=== PATIENT | male | born 1985 | race Caucasian/White ===

== ENCOUNTER 2019-03-19 16:49 | Observation (INO) | payer OTHER ==
[~2019-03-19] VITALS: Ht 177.8 cm; Wt 126.0 kg
[2019-03-19 17:46] LABS: BASO # 0.1 (0.0-0.2); BASO % 0.9 % (0.0-2.0); EOS # 0.1 (0.0-0.7); EOS % 0.9 % (0-4.0); GRAN # 5.5 (1.4-6.5); GRAN % 61.1 % (42.2-75.2); HEMATOCRIT 49.9 % (42.0-52.0); HEMOGLOBIN 17.1 g/dl (13.5-18.0); LYMPH # 2.8 (1.2-3.4); LYMPH % 31.1 % (20.0-51.0); MEAN CELL VOLUME 88 fl (80.0-100.0); MEAN CORPUSCULAR HEMOGLOBIN 30 pg (27.0-31.0); MEAN CORPUSCULAR HGB CONC 34 g/dl (33.0-37.0); MEAN PLATELET VOLUME 9.4 fl (7.4-10.4); MONO # 0.5 (0.1-0.6); MONO % 5.7 % (1.7-9.3); PLATELET COUNT 304 K/mm3 (130-400); RED BLOOD COUNT 5.67 M/mm3 (4.20-5.60); REDCELL DISTRIBUTION WIDTH-CV 12.8 % (11.5-14.5)
[2019-03-19 18:03] LABS: C-REACTIVE PROTEIN 0.7 mg/dL (0.0-0.9); CALCIUM 9.9 mg/dL (8.4-10.2); CREATININE, serum 1.15 (0.66-1.25); POTASSIUM 3.9 mmol/L (3.4-5.0); TOTAL PROTEIN 9.4 gm/dL (6.4-8.2)
--- NOTE | 2019-03-19 20:50 | NUR ---
REPORT RECEIVED. TO ROOM 322-2 VIA WHEELCHAIR. ADMISSION COMPLETE. VS STABLE. CLEAR LIQUIDS PROVIDED. DENIES PAIN AT THIS TIME-SLIGHT PRESSURE EPIGASTRIC. DENIES N/V. ORIENTED TO ROOM AND POLICY. PLAN OF CARE DISCUSSED FOR NPO AT MIDNIGHT. VERBALIZES UNDERSTANDING. CALL LIGHT WITHIN REACH. BED IN LOW POSITION. WHEELS LOCKED. WILL MONITOR.
[2019-03-19 20:57] VITALS: BP 120/61; PULSE 92; TEMP 98.7
[2019-03-19 23:33] VITALS: BP 115/70; PULSE 83; TEMP 98.2
[2019-03-20] VITALS (13 sets, daily range): BP systolic 102–132; BP diastolic 57–93; PULSE 72–113; TEMP 97.6–99.4
[2019-03-20 04:27] LABS: COLLECTION METHOD CLEAN CATCH
[2019-03-20 04:33] LABS: MUCOUS Present /lpf; PH 5 (5-8); SQUAMOUS EPITHELIAL None Seen /hpf; URINE APPEARANCE Clear; URINE BACTERIA None Seen /hpf; URINE BILIRUBIN Negative (NEGATIVE); URINE BLOOD Negative (NEGATIVE); URINE COLOR Yellow; URINE GLUCOSE Negative (NEGATIVE); URINE KETONE Negative (NEGATIVE); URINE LEUKOCYTE ESTERASE Negative (NEGATIVE); URINE NITRATE Negative (NEGATIVE); URINE PROTEIN(semi-quant) Negative (NEGATIVE); URINE RBC 0-2 /hpf; URINE UROBILINOGEN Negative (NEGATIVE)
--- NOTE | 2019-03-20 05:30 | NUR ---
RESTING EYES CLOSED. NO S/S OF PAIN NOTED. HAS SLEPT MOST OF THIS SHIFT. DID C/O HEADACHE AND RIGHT UPPER QUADRANT PAIN 03/26. IV MEDS GIVEN. CALL LIGHT WITHIN REACH. BED IN LOW POSITION. WILL MONITOR.
--- NOTE | 2019-03-20 07:08 | NUR ---
REPORT TO FARIHA ROMERO
--- NOTE | 2019-03-20 10:07 | NUR ---
Initial visit; Patient thanked Scrum Master for looking in on him and keeping him in her prayers.
--- NOTE | 2019-03-20 12:22 | NUR ---
Patient down to OR by bed.
--- NOTE | 2019-03-20 16:00 | NUR ---
Patient up from OR. Alert and oriented. Lap sites x4 with bandaids, CDI. Post op fluids infusing via gravity. Denies pain or further needs at this time.
--- NOTE | 2019-03-20 18:23 | NUR ---
Patient sitting up in bed. States mild discomfort to abdomen. Post op VSS. Up to restroom, steady gait. Tolerating oral intake without nausea. SCDs to BLE. Denies pain or further needs at this time. Will report off to shift supervisor.
--- NOTE | 2019-03-20 20:55 | NUR ---
Patient rating pain to abdomen 05/26. Medicated with [place] 5/325mg 2 tabs po at this time. Has SL to right AC and SL to left hand without redness or swelling. Has been up to void x2 with steady gait. Bandaids to abdomen D/I. Denies nausea at this time.
[2019-03-21 04:06] VITALS: BP 121/75; PULSE 108; TEMP 99.2
--- NOTE | 2019-03-21 04:27 | NUR ---
DC'd IV site to left hand per patient request. Has another IV site to right AC intact.
--- NOTE | 2019-03-21 06:00 | NUR ---
Medicated with [place] 5/325mg 2 tabs po at this time.
[2019-03-21 07:59] VITALS: BP 125/71; PULSE 98; TEMP 98.6
--- NOTE | 2019-03-21 08:00 | NUR ---
PATIENT IS SITTING UP IN BED THIS MORNING. PATIENT IS A&O. TACHYCARDIA NOTED, OTHERWISE VSS. BOWEL SOUNDS ACTIVE ALL FOUR QUADRANTS. PATIENT TOLERATING DIET WITHOUT ANY COMPLAINTS OF N/V. ABDOMINAL LAP SITES X4 DRESSED WITH BANDAIDS AND HAVE A SCANT AMOUNT OF OLD BLOODY DRAINAGE PRESENT. POSITIVE PEDAL PULSES EQUAL BILATERALLY. INT TO RIGHT AC. CALL LIGHT WITHIN REACH. BREAKFAST TRAY ORDERED. PATIENT DENIES ANY OTHER NEEDS AT THIS TIME.
[2019-03-21 11:27] VITALS: BP 120/56; PULSE 104; TEMP 98.2
--- NOTE | 2019-03-21 15:06 | NUR ---
workers' compensation magistrate met with patient to discuss discharge planning. Patient states he lives alone in [place] and will return home upon discharge. Worker confirmed that the hospital has patient's current insurance, [employer]. Patient states he does not have problems picking up his prescriptions and states that his family will sometimes help if cost is high.
--- NOTE | 2019-03-21 15:18 | NUR ---
Patient primary care provider is Dr Bates.
--- NOTE | 2019-03-21 15:20 | NUR ---
PATIENT'S RIGHT AC INT DISCONTINUED PER PENDING DISCAHRGE. TIP INTACT. PATIENT TOLERATED WELL.
--- NOTE | 2019-03-21 16:30 | NUR ---
PATIENT'S PAIN WELL CONTROLLED WITH PRN [place]. DISCHARGE INSTRUCTIONS REVIEWED WITH PATIENT AND FAMILY. ALL QUESTIONS ANSWERED. PATIENT PERSONAL BELONGINGS GATHERED. PATIENT AMBULATED TO PERSONAL VEHICLE WITH SURGICAL STAFF. PATIENT DISCHARGED.
== END 2019-03-21 16:30 | disposition home or self-care (01) ==
LOC: COL.ER 16:49 → SURG 19:43
PROVIDERS: Family Medicine; ADMIT Surgery
DX: K80.10 Calculus of gallbladder with chronic cholecystitis without obstruction (principal); G43.909 Migraine, unspecified, not intractable, without status migrainosus
CPT/HCPCS: J0330; J0690; J1100; J1885; J1956; J2250; J2270; J2405; J2704; J2765; J3010; J7030; J7120

== ENCOUNTER → 2019-03-19 | Outpatient (CLI) | payer OTHER ==
[~2019-03-19] MED LIST: BACTROBAN2% TP; CEPHALEXIN500 M1 PO; DOXYCYCLINE 10100 MG PO; LORTAB 5/500 501 TAB PO; NO HOME MEDICATIONS; NORCO 325 MG-51 TAB PO; PREDNISONE20 MG PO
[2019-03-19 15:14] LABS: BASO # 0.1 (0.0-0.2); BASO % 0.9 % (0.0-2.0); EOS # 0.1 (0.0-0.7); EOS % 1.1 % (0-4.0); GRAN # 4.9 (1.4-6.5); GRAN % 60.4 % (42.2-75.2); HEMATOCRIT 49.5 % (42.0-52.0); HEMOGLOBIN 16.7 g/dl (13.5-18.0); LYMPH # 2.6 (1.2-3.4); LYMPH % 31.6 % (20.0-51.0); MEAN CELL VOLUME 89 fl (80.0-100.0); MEAN CORPUSCULAR HEMOGLOBIN 30 pg (27.0-31.0); MEAN CORPUSCULAR HGB CONC 34 g/dl (33.0-37.0); MEAN PLATELET VOLUME 9.3 fl (7.4-10.4); MONO # 0.5 (0.1-0.6); MONO % 5.6 % (1.7-9.3); PLATELET COUNT 292 K/mm3 (130-400); RED BLOOD COUNT 5.59 M/mm3 (4.20-5.60); REDCELL DISTRIBUTION WIDTH-CV 12.8 % (11.5-14.5)
[2019-03-19 15:29] LABS: ALBUMIN 4.9 gm/dL (3.5-5.0); BILIRUBIN,TOTAL 0.9 mg/dL (0.0-1.0); CALCIUM 10.1 mg/dL (8.4-10.2); CREATININE, serum 1.07 (0.66-1.25); POTASSIUM 4.1 mmol/L (3.4-5.0); TOTAL PROTEIN 9.1 gm/dL (6.4-8.2)
== END ==
LOC: COL.LAB 14:48
PROVIDERS: Physician Assistant Medical
DX: R10.13 Epigastric pain (principal)

== ENCOUNTER → 2021-05-22 | Outpatient (CLI) | payer OTHER ==
[2021-05-22 12:06] LABS: HEMATOCRIT 47.5 % (42.0-52.0); HEMOGLOBIN 16.1 g/dl (13.5-18.0); MEAN CELL VOLUME 89 fl (80.0-100.0); MEAN CORPUSCULAR HEMOGLOBIN 30 pg (27.0-31.0); MEAN CORPUSCULAR HGB CONC 34 g/dl (33.0-37.0); MEAN PLATELET VOLUME 9.1 fl (7.4-10.4); PLATELET COUNT 235 K/mm3 (130-400); RED BLOOD COUNT 5.32 M/mm3 (4.20-5.60); REDCELL DISTRIBUTION WIDTH-CV 13.2 % (11.5-14.5)
[2021-05-22 12:17] LABS: ALBUMIN 4.7 gm/dL (3.5-5.0); CALCIUM 9.3 mg/dL (8.4-10.2); CHOLESTEROL RISK RATIO 6.2; CREATININE, serum 0.91 (0.66-1.25); POTASSIUM 4.4 mmol/L (3.4-5.0); TOTAL PROTEIN 8.3 gm/dL (6.4-8.2)
[2021-05-22 12:46] LABS: THYROID STIMULATING HORMONE 3.02 uIU/mL (0.465-4.680)
== END ==
LOC: COL.LAB 11:13
PROVIDERS: Family Medicine
DX: Z13.220 Encounter for screening for lipoid disorders (principal); Z13.228 Encounter for screening for other metabolic disorders; Z13.21 Encounter for screening for nutritional disorder; E66.01 Morbid (severe) obesity due to excess calories

== ENCOUNTER 2022-01-12 18:40 | Emergency (ER) | payer BC ==
[~2022-01-12] VITALS: Ht 177.8 cm; Wt 104.5 kg
[2022-01-12] MEDS ORDERED: MOBIC 7.5MG7.5 MG PO (19:36)
[2022-01-12] MEDS ORDERED: MEDROL 4MG DOSPA4 MG PO (19:36)
[2022-01-12 19:53] VITALS: BP 123/86; PULSE 80; TEMP 98.5
== END 2022-01-12 19:55 | disposition home or self-care (01) ==
LOC: COL.ER 18:40
DX: S63.502A Unspecified sprain of left wrist, initial encounter (principal); X50.9XXA Other and unspecified overexertion or strenuous movements or postures, initial encounter

== ENCOUNTER 2022-10-04 09:37 | Outpatient (RCR) | payer OTHER ==
[~2022-10-04 09:37] MED LIST changes: +MEDROL 4MG DOSPA4 MG PO; +MOBIC 7.5MG7.5 MG PO
== END 2022-10-16 | disposition home or self-care (01) ==
LOC: WSOH
DX: S60.221A Contusion of right hand, initial encounter (principal); Y99.0 Civilian activity done for income or pay